=== PATIENT | male | born 1985 | race Caucasian/White ===

== ENCOUNTER 2019-06-11 09:52 | Inpatient (IN) ==
[2019-06-12] MEDS ORDERED: Magnesium Hydroxide LIQ 30 ML UDC PO PRN (15:07)
[2019-06-12] MEDS ORDERED: Senna TAB 8.6 mg TAB PO PRN (15:07)
[2019-06-12] MEDS ORDERED: Dextrose 50% Syringe 50 ml 25 GM/50 ML SYRINGE IV PUSH PRN (15:22)
[2019-06-12] MEDS: Heparin 5000 UNITS/ML 1 mL VIAL SUBCUT SCH (21:14)
[2019-06-12] MEDS: Insulin GLARGINE 100 un/ml 10 ml VIAL SUBCUT SCH (21:31)
[2019-06-13] MEDS: Heparin 5000 UNITS/ML 1 mL VIAL SUBCUT SCH ×3 (05:19→21:29)
[2019-06-13 06:59] LABS: ABS Basophils 0.1 10^3/ul (0-0.2); ABS Eosinophils 0.2 10^3/ul (0-0.6); ABS Lymphocytes 1.2 10^3/ul (1.0-4.8); ABS Monocytes 0.6 10^3/ul (0-0.8); Hematocrit 33 % (42-52); Hemoglobin 11.3 g/dL (14.0-18.0); Lymphocyte % 15.9 %; Mean Corpuscular HGB Conc 34 g/dL (31-36); Mean Corpuscular Hemoglobin 28 pg (27-31); Mean Corpuscular Volume 82 fL (80-94); Mean Platelet Volume 6.5 fL (7.4-10.4); Nucleated Red Blood Cells % 0.1; Platelet Count 442 10^3/uL (150-450); Red Blood Count 4.06 10^6 /uL (4.18-5.48); Red Cell Distribution Width 15 % (10-15); White Blood Count 7.6 10^3/uL (3.5-10.8)
[2019-06-13 07:02] LABS: Albumin 3.3 g/dL (3.2-5.2); Albumin/Globulin Ratio 0.9 (1-3); BUN/Creatinine Ratio 25.3 (8-20); Calcium 9.5 mg/dL (8.6-10.3); EGFR African American 144.2 (>60); EGFR Non-African American 119.2 (>60); Globulin 3.8 g/dL (2-4); Potassium 4.4 mmol/L (3.5-5.0); Total Bilirubin 0.4 mg/dL (0.2-1.0); Total Protein 7.1 g/dL (6.4-8.9)
[2019-06-13] MEDS: cefTRIAXone 2 GM ADDV.VIAL 2 GM in NS 0.9% 100 ml BAG 100 ML IV SCH (10:14)
[2019-06-13] MEDS: BENADRYL TOPICAL SCH ×2 (15:02→21:29)
[2019-06-13] MEDS: Insulin GLARGINE 100 un/ml 10 ml VIAL SUBCUT SCH (21:29)
[2019-06-14] MEDS: Heparin 5000 UNITS/ML 1 mL VIAL SUBCUT SCH ×3 (06:11→21:19)
[2019-06-14] MEDS: BENADRYL TOPICAL SCH ×3 (09:19→21:17)
[2019-06-14] MEDS: cefTRIAXone 2 GM ADDV.VIAL 2 GM in NS 0.9% 100 ml BAG 100 ML IV SCH (09:30)
[2019-06-14] MEDS: Insulin GLARGINE 100 un/ml 10 ml VIAL SUBCUT SCH (21:17)
[2019-06-15] MEDS: Heparin 5000 UNITS/ML 1 mL VIAL SUBCUT SCH ×3 (05:31→21:32)
[2019-06-15] MEDS: cefTRIAXone 2 GM ADDV.VIAL 2 GM in NS 0.9% 100 ml BAG 100 ML IV SCH (10:21)
[2019-06-15] MEDS: BENADRYL TOPICAL SCH ×3 (12:34→21:31)
[2019-06-15] MEDS: Insulin GLARGINE 100 un/ml 10 ml VIAL SUBCUT SCH (21:30)
[2019-06-16] MEDS: Heparin 5000 UNITS/ML 1 mL VIAL SUBCUT SCH ×2 (05:43→14:08)
[2019-06-16] MEDS: cefTRIAXone 2 GM ADDV.VIAL 2 GM in NS 0.9% 100 ml BAG 100 ML IV SCH (09:52)
[2019-06-16] MEDS: BENADRYL TOPICAL SCH ×3 (10:17→22:54)
[2019-06-16] MEDS: Insulin GLARGINE 100 un/ml 10 ml VIAL SUBCUT SCH (22:57)
[2019-06-17] MEDS: BENADRYL TOPICAL SCH ×4 (08:12→22:26)
[2019-06-17] MEDS: cefTRIAXone 2 GM ADDV.VIAL 2 GM in NS 0.9% 100 ml BAG 100 ML IV SCH (10:19)
[2019-06-17] MEDS: [UNRECOGNIZED DRUG - OTHER] SUBCUT SCH (22:31)
[2019-06-17] MEDS: INSULIN GLARGINE SUBCUT SCH (22:31)
[2019-06-18] MEDS: Heparin 5000 UNITS/ML 1 mL VIAL SUBCUT SCH ×2 (08:17→20:58)
[2019-06-18] MEDS: cefTRIAXone 2 GM ADDV.VIAL 2 GM in NS 0.9% 100 ml BAG 100 ML IV SCH (08:21)
[2019-06-18] MEDS: BENADRYL TOPICAL SCH ×3 (08:30→20:58)
[2019-06-18] MEDS: [UNRECOGNIZED DRUG - OTHER] SUBCUT SCH (20:48)
[2019-06-18] MEDS: INSULIN GLARGINE SUBCUT SCH (20:48)
[2019-06-19] MEDS: cefTRIAXone 2 GM ADDV.VIAL 2 GM in NS 0.9% 100 ml BAG 100 ML IV SCH (08:09)
[2019-06-19] MEDS: BENADRYL TOPICAL SCH ×3 (08:20→21:17)
[2019-06-19] MEDS: Heparin 5000 UNITS/ML 1 mL VIAL SUBCUT SCH ×2 (08:21→21:15)
[2019-06-19] MEDS ORDERED: Sodium Phosphate ADULT ENEMA 133 ML BTL ONE (09:19)
[2019-06-19] MEDS ORDERED: Sodium Phosphate ADULT ENEMA 133 ML BTL PR ONE (09:30)
[2019-06-19] MEDS ORDERED: BASAGLAR SUBCUT SCH (21:06)
[2019-06-19] MEDS: [UNRECOGNIZED DRUG - OTHER] SUBCUT SCH (21:51)
[2019-06-19] MEDS: INSULIN GLARGINE SUBCUT SCH (21:51)
[2019-06-20 06:21] LABS: ABS Eosinophils 0.1 10^3/ul (0-0.6); ABS Lymphocytes 1.3 10^3/ul (1.0-4.8); ABS Monocytes 0.4 10^3/ul (0-0.8); Eosinophil % 1.6 %; Hematocrit 32 % (42-52); Hemoglobin 10.7 g/dL (14.0-18.0); Lymphocyte % 26.6 %; Mean Corpuscular HGB Conc 34 g/dL (31-36); Mean Corpuscular Hemoglobin 28 pg (27-31); Mean Corpuscular Volume 81 fL (80-94); Mean Platelet Volume 6.8 fL (7.4-10.4); Nucleated Red Blood Cells % 0.1; Platelet Count 275 10^3/uL (150-450); Red Cell Distribution Width 15 % (10-15)
[2019-06-20 06:23] VITALS: BP 136/81
[2019-06-20 06:41] LABS: Albumin 3.4 g/dL (3.2-5.2); Albumin/Globulin Ratio 0.9 (1-3); BUN/Creatinine Ratio 20.3 (8-20); Calcium 9.3 mg/dL (8.6-10.3); EGFR African American 158.8 (>60); EGFR Non-African American 131.3 (>60); Globulin 3.6 g/dL (2-4); Total Bilirubin 0.4 mg/dL (0.2-1.0)
[2019-06-20] MEDS: Heparin 5000 UNITS/ML 1 mL VIAL SUBCUT SCH (08:21)
[2019-06-20] MEDS: cefTRIAXone 2 GM ADDV.VIAL 2 GM in NS 0.9% 100 ml BAG 100 ML IV SCH (08:24)
[2019-06-20] MEDS: BENADRYL TOPICAL SCH ×2 (08:27→14:07)
== END 2019-06-20 14:30 | disposition home health service (06) | DRG 860 ==
LOC: PMRU 06-12 13:37
PROVIDERS: ADMIT Physical Medicine & Rehabilitation; ATTEND Physical Medicine & Rehabilitation